=== PATIENT | female | born 1965 | race Caucasian/White ===

== ENCOUNTER 2024-12-20 14:24 | Outpatient (REF) | payer MEDICAID, SELFPAY ==
[2024-12-20 16:16] LABS: Anion Gap 9.8 mmol/L (3-11); BUN 13 mg/dL (7-18); CO2 28.2 mmol/L (21.0-32.0); CREATININE 0.8 mg/dL (0.55-1.02); Calcium 9.5 mg/dL (8.5-10.1); Chloride 104 mmol/L (98-107); Estimated GFR 85.35 (mL/min/1.73m2); Glucose 87 mg/dL (74-106); Sodium 142 mmol/L (136-145); Vitamin D 25 Total 71 ng/mL (30-100)
== END 2024-12-20 14:25 | disposition home or self-care (01) ==
LOC: LBN 14:24
PROVIDERS: PCP Nurse Practitioner Family; Visit Provider Nurse Practitioner Family
DX: Z00.00 Encounter for general adult medical examination without abnormal findings (principal)
CPT/HCPCS: 80048; 82306

== ENCOUNTER 2025-03-13 04:04 | Outpatient (CLI) | payer MEDICAID, SELFPAY ==
[2025-03-13 11:09] LABS: HCT 34.9 % (36.0-46.0); HGB 10.9 g/dL (11.2-15.7); MCH 20.0 pg (27.0-33.0); MCHC 31.2 % (32.0-36.0); MCV 64 fL (80-95); RDW 18.5 % (11.7-14.6); RDW-SD 39.3 fL; WBC 4.20 10^3/uL (4.4-10.8)
[2025-03-13 11:34] LABS: Platelet Count 241 10^3/uL (130-400)
[2025-03-13 11:35] LABS: RBC 5.45 10^6/uL (3.93-5.22)
[2025-03-13 11:57] LABS: Anion Gap 5.9 mmol/L (3-11); BUN 12 mg/dL (7-18); CO2 30.1 mmol/L (21.0-32.0); Calcium 9.6 mg/dL (8.5-10.1); Chloride 104 mmol/L (98-107); Estimated GFR 85.35 (mL/min/1.73m2); Glucose 94 mg/dL (74-106); Potassium 3.9 mmol/L (3.5-5.1); Sodium 140 mmol/L (136-145); TSH 1.51 uIU/mL (0.36-3.74); Vitamin D 25 Total 78 ng/mL (30-100)
== END 2025-03-13 04:05 | disposition home or self-care (01) ==
LOC: LBO 04:05
PROVIDERS: PCP Nurse Practitioner Family; Visit Provider Internal Medicine Endocrinology, Diabetes & Metabolism
DX: M81.0 Age-related osteoporosis without current pathological fracture (principal); C50.911 Malignant neoplasm of unspecified site of right female breast; Z17.0 Estrogen receptor positive status [ER+]
CPT/HCPCS: 36415; 80048; 82306; 85027; 83970; 84443

== ENCOUNTER 2025-03-15 12:11 | Outpatient (REF) | payer MEDICAID, SELFPAY ==
[2025-03-15 16:21] LABS: Creatinine,Urine 70.64 mg/dL; Sodium, Urine 62 mmol/L
[2025-03-15 16:26] LABS: Creatinine,24hr Ur 0.92 g/24hr (0.60-1.80); Total Volume 1350 ml
[2025-03-15 16:27] LABS: Total Volume 1350 ml
[2025-03-16 10:16] LABS: Calcium Urine 9.2 mg/dL (See Note); Phosphorus Urine 24hr 1.0 g/24hrs (0.4-1.3); Timed Urine Volume 1350 mL
[2025-03-17 10:07] LABS: Citrate Excretion, 24hr, U 1293 mg/24 h (420 - 1191)
[2025-03-17 15:01] LABS: Oxalate, U 0.47 mmol/24 h; Oxalate, U 41.4 mg/24 h (9.7 - 40.5)
[2025-03-17 15:48] LABS: Sulfate Concentration, 24h, Ur 64.7 mg/dL; Sulfate, 24 hr, U 9 mmol/24 h (7 - 47)
[2025-03-26 11:32] LABS: Timed Urine Volume 1350 mL
[2025-03-26 11:33] LABS: Timed Urine Volume 1350
== END 2025-03-15 12:12 | disposition home or self-care (01) ==
LOC: LBN 12:11
PROVIDERS: PCP Nurse Practitioner Family; Visit Provider Internal Medicine Endocrinology, Diabetes & Metabolism
DX: M81.0 Age-related osteoporosis without current pathological fracture (principal); C50.911 Malignant neoplasm of unspecified site of right female breast; Z17.0 Estrogen receptor positive status [ER+]
CPT/HCPCS: 82507; 83735; 81050; 82340; 82570; 83945; 84105; 84300; 84392; 84560